=== PATIENT | male | born 1960 | race Caucasian/White ===

== ENCOUNTER → 2025-03-25 09:28 | Emergency (ER) | payer MEDICARE, OTHER, SELFPAY ==
[2025-03-25 09:30] VITALS: BP 156/94
--- NOTE | 2025-03-25 10:31 | ED.GENMED ---
History of Present Illness
General
Chief Complaint: Cough
Time Seen by Provider: 03/25/25 10:30
History of Present Illness
History of Present Illness:
CHIEF COMPLAINT(S)
Persistent cough and difficulty breathing.
HISTORY OF PRESENT ILLNESS
The patient is a 65-year-old male who began experiencing symptoms shortly after returning from a cruise to [facility] on February 16. The described symptoms started as a head cold and have persisted for almost a month. The patient reports visiting two
urgent care centers where tests for COVID-19, influenza A, influenza B, and streptococcal infection were conducted, all returning negative results. The patient notes that the cough persisted, leading to a visit to another urgent care center where he
was prescribed azithromycin and a steroid, which initially seemed to alleviate symptoms. However, the symptoms returned this past Tuesday with similar intensity. The patient reports experiencing slight difficulty in breathing, which becomes more
pronounced upon exertion, such as climbing stairs. This breathing difficulty was present even before the cruise but has been exacerbated by the current condition. The patient mentions slight swelling in the right leg.
PHYSICAL EXAM
GENERAL: Well appearing in no distress, audible cough noted
HEENT: Moist oral mucosa
CARDIOVASCULAR: No murmurs, normal heart rate, regular rhythm, No chest wall tenderness
PULMONARY: No respiratory distress, mild wheeze left base posteriorly
ABDOMEN: Soft with no peritoneal signs, no tenderness
NEUROLOGIC: Excellent strength all extremities, no coordination deficits
PSYCHIATRIC: Appropriate mental status, normal insight and judgement
EXTREMITIES: Nontender, mild right lower extremity edema, moves all extremities equally
SKIN: No rash, no lesions
PROBLEM LIST
Acute:
- Persistent cough
- Shortness of breath
- Mild wheezing
- Right leg swelling
PLAN
- Perform a chest X-ray
- Execute blood tests to rule out other conditions such as heart failure
- Conduct an ultrasound of the right leg
- Administer a breathing treatment to assess effects on symptoms
- If initial tests are negative, consider another course of azithromycin and steroids
DIFFERENTIAL DIAGNOSIS
The Differential Diagnosis includes, in no particular order and is not limited to:
1. Chronic Obstructive Pulmonary Disease (COPD)
2. Asthma
3. Congestive Heart Failure
4. Pulmonary Embolism
5. Interstitial Lung Disease
6. Bronchitis
7. Allergic Rhinitis
8. Gastroesophageal Reflux Disease (GERD) related cough
9. Pneumonia
10. Acute Respiratory Infection
MEDICATIONS
- Rosuvastatin for cholesterol
- Hydrochlorothiazide for blood pressure
- Omeprazole for acid reflux
REVIEW OF OLD RECORDS
The patient was admitted in 2019 related to left knee arthroplasty
NUMBER AND COMPLEXITY OF PROBLEMS ADDRESSED AT THE ENCOUNTER
Chronic conditions affecting care: High blood pressure, obesity, GERD, anxiety
Acute Exacerbation and/or Progression of Chronic Illness: This is a subacute problem
AMOUNT AND/OR COMPLEXITY OF DATA TO BE REVIEWED AND ANALYZED PERSONALLY REVIEWED:
EKG:
CT:
X-rays: Chest x-ray shows no acute abnormality
Laboratory Studies: White count normal, hemoglobin 12.3, chemistries unremarkable, normal renal function, BNP shows no sign of heart failure
Clinical information was obtained by an independent historian: I spoke to at bedside
Prescriptions/Medications Considered but not given:
Further testing considered but not performed:
RISK OF COMPLICATIONS AND/OR MORBIDITY OR MORTALITY OF PATIENT MANAGEMENT
Social determinants of health affecting care: Smoker former
Discussion with other providers:
Escalation of care including admission/observation vs risk of discharge considered:
ANY OTHER UPDATES:
12:45 PM: On reassessment, the patient states that he feels improved after nebs given. Will plan discharge with steroids, Z-Oliver, and inhaler. Steroids is effective helping with similar episode in the recent past.
Past History
Past History
ED Past Medical History: GERD, HTN, Hypercholesterolemia and Other (Kidney stones, borderline diabetes)
ED Past Surgical History: Appendectomy, Orthopedic, Tonsilectomy and Other (Hernia repair)
Social History
Tobacco: Non-smoker
Alcohol: Occasional
Personal:
Living: with family
Employment: Employed
Family History
Family History: Other (Mother with bladder cancer)
Phy Exam
Physical Exam
Physical Exam:
See HPI
Course
Orders/Labs/Results
Orders:
Orders
03/25/25 09:32
CR Chest - 2 Views Urgent
Comment:
Reason For Exam: cough, shrotness of breath
03/25/25 10:53
Ipratropium/Albuterol Sulfate [Duoneb] 3 ml INH R NOW STA
03/25/25 11:06
Complete Blood Count/With Diff Urgent
Comprehensive Metabolic Panel Urgent
Magnesium Urgent
NT-proBNP Urgent
Abnormal Lab Results
03/25/25
11:06
Hgb 12.3 L g/dL
(13.0-18.0)
MCV 79.4 L fL
(80.0-94.0)
MCH 25.1 L pg
(27.0-31.0)
MCHC 31.5 L g/dL
(33.0-37.0)
RDW 17.3 H %
(11.5-14.5)
MPV 11.1 H fL
(7.4-10.4)
Absolute Lymphs (auto) 1.0 L 10^3/uL
(1.2-3.4)
Absolute Monos (auto) 0.9 H 10^3/uL
(0.1-0.6)
Lymphocytes % 12.7 L %
(20.5-51.1)
Monocytes % 11.9 H %
(1.7-9.3)
Chloride 110 H mmol/L
(98-107)
Glucose 103 H mg/dl
(70-99)
Total Protein 6.2 L g/dl
(6.3-8.2)
03/25/25 11:06
03/25/25 11:06
Vital Signs
Initial and Last Documented VS:
Initial Vital Signs
Temp Pulse Resp BP Pulse Ox
37.2 C 94 20 156/94 94
03/25/25 09:30 03/25/25 09:30 03/25/25 09:30 03/25/25 09:30 03/25/25 09:30
Last Documented Vital Signs
Temp Pulse Resp BP Pulse Ox
37.2 C 94 17 156/94 93
03/25/25 09:30 03/25/25 12:00 03/25/25 12:00 03/25/25 09:30 03/25/25 12:00
*Critical Care Note
Total Time (30-74mins, 75-104mins- exclusive of procedures): Not Applicable
ED Attending Note
-
Portions of this chart may have been created with voice recognition software.� Occasional wrong word or��sound alike� substitutions may have occurred due to the inherent limitations of voice recognition software.
Discharge Plan
Departure
Prescriptions:
No Action
omeprazole 40 MG capsule,delayed release(DR/EC)
40 mg PO DAILY
pravastatin 20 MG tablet
20 mg PO QPM
Cinnamon
1,000 mg PO BID
Milk Thistle
1 tab PO BID
Vitamin B-12
1 tab PO DAILY
lisinopril 10 MG tablet
10 mg PO DAILY
mupirocin 1 APPLIC ointment
1 applic intranasal BID Qty: 1 0RF
Patient Comments:
patient started this treatment on 06/09/2020 in the morning. He administered this today 06/12/2020 @ 0430.
escitalopram oxalate 5 MG tablet
5 mg PO DAILY
sennosides [senna] 1 TABLET tablet
2 tab PO BID 0RF
aspirin 325 MG tablet
325 mg PO DAILY 0RF
magnesium hydroxide 30 ML suspension
30 ml PO HS 0RF
Rx Instructions:
nightly until BM
docusate sodium 100 MG capsule
100 mg PO BID 0RF
glucosamine starkey 2KCl-chondroit 1 EACH tablet
1 ea PO DAILY Qty: 0 0RF
Rx Instructions:
resume 7 days post-op
Multiple Vitamins
1 tab PO QPM Qty: 0 0RF
Rx Instructions:
resume 7 days post-op
[place] 3-6-9 Complex Softgel
1 tab PO QPM PRN (Reason: occasional) Qty: 0 0RF
Rx Instructions:
resume 7 days post-op
prednisone 10 MG tablet
40 mg PO TAPER Qty: 20 0RF
Rx Instructions:
take wiWEMS food-start 06/14
hydromorphone 2 MG tablet
2 mg PO Q4HPRN PRN (Reason: moderate-severe pain) Qty: 50 0RF
Rx Instructions:
1 tab moderate pain or 2 if pain severe
dx tka
ongoing therapy
diazepam 2 MG tablet
2 mg PO TID Qty: 20 0RF
Rx Instructions:
tid x 3 days, then q6h prn muscle spasm/;sleep
meloxicam 15 MG tablet
15 mg PO HS Qty: 1 0RF
Rx Instructions:
resume when steroid(Prednisone) is finished
Referrals:
Gautam Rueda DO [Family Provider, Family Practice]
Interventions
Interventions:
*Risk Screen - Suicide Last Done: 03/25/25 11:09
*General Assessment Last Done: 03/25/25 11:09
*Neglect/Abuse Screening Last Done: 03/25/25 11:09
*ED- Fall Risk Assessment Last Done: 03/25/25 11:09
*ED COVID-19 Vaccine History Last Done: 03/25/25 11:09
ED- Pulmonary Assessment Last Done: 03/25/25 11:09
Discharge Date and Time
Print Language: CUBAN
[2025-03-25] MEDS: DUONEB 3 ML INH (11:01)
[2025-03-25 11:07] VITALS: BMI 38.0
[2025-03-25 11:18] LABS: % Basophils 1.3 % (0-2); % Eosinophils 4.4 % (0-6); % Immature Granulocytes 0.3 % (0-0.5); % Lymphocytes 12.7 % (20.5-51.1); % Monocytes 11.9 % (1.7-9.3); % Neutrophils 69.4 % (42.2-75.2); Absolute Basophils 0.1 10^3/uL (0-0.2); Absolute Eosinophils 0.3 10^3/uL (0-0.7); Absolute Monocytes 0.9 10^3/uL (0.1-0.6); Absolute Neutrophils 5.3 10^3/uL (1.4-6.5); Hemoglobin 12.3 g/dL (13.0-18.0); Mean Corp Hgb Conc. 31.5 g/dL (33.0-37.0); Mean Corpuscular Hgb 25.1 pg (27.0-31.0); Mean Corpuscular Volume 79.4 fL (80.0-94.0); Mean Platelet Volume 11.1 fL (7.4-10.4); Nucleated Red Blood Cells % 0 % (-); Platelet Count 237 10^3/uL (130-400); Red Blood Cell Count 4.91 10^6/uL (4.70-6.10); Red Cell Dist. Width 17.3 % (11.5-14.5); White Blood Cell Count 7.6 10^3/uL (4.8-10.8)
[2025-03-25 11:40] LABS: ALT (SGPT) 22 U/L (0-50); AST (SGOT) 20 U/L (17-59); Albumin 3.9 g/dl (3.5-5.0); Alkaline Phosphatase 73 U/L (38-126); Blood Urea Nitrogen 17 mg/dl (9-20); Calcium 8.9 mg/dl (8.4-10.2); Carbon Dioxide 27 mmol/L (22-30); Chloride 110 mmol/L (98-107); Estimated Creatinine Clearance 97 ml/min; Glucose 103 mg/dl (70-99); Magnesium 1.9 mg/dl (1.6-2.3); Potassium 4.3 mmol/L (3.5-5.1); Sodium 141 mmol/L (135-145); Total Bilirubin 0.6 mg/dl (0.2-1.3); Total Protein 6.2 g/dl (6.3-8.2); eGFR > 60.00
[2025-03-25 11:46] LABS: NT-proBNP 77.4 pg/ml
[2025-03-25 12:59] VITALS: BP 144/92
== END | disposition home or self-care (01) ==
LOC: EMR 09:28
PROVIDERS: EMERGENCY PHYSICIAN Emergency Medicine; FAMILY PHYSICIAN Family Medicine
DX: J45.909 Unspecified asthma, uncomplicated (principal); R05.9 Cough, unspecified; R22.41 Localized swelling, mass and lump, right lower limb; E78.00 Pure hypercholesterolemia, unspecified; I10 Essential (primary) hypertension
CPT/HCPCS: 94640; 99284; 71046; 80053; 83735; 83880; 85025